=== PATIENT | male | born 1990 | race Caucasian/White ===

== ENCOUNTER → 2019-08-27 | Outpatient (CLI) | payer BC, OTHER | LOC: CAT 08-22 10:35 | DX: J32.9 Chronic sinusitis, unspecified (principal); J34.89 Other specified disorders of nose and nasal sinuses; J34.2 Deviated nasal septum ==

== ENCOUNTER → 2021-01-15 | Outpatient (CLI) | payer BC, OTHER | LOC: SJCVCIMAG 13:04 | PROVIDERS: ATTEND Internal Medicine Cardiovascular Disease | DX: R07.89 Other chest pain (principal); R00.0 Tachycardia, unspecified; R11.0 Nausea; R53.83 Other fatigue ==